=== PATIENT | male | born 1990 | race Caucasian/White ===

== ENCOUNTER 2017-01-01 16:55 | Emergency (ER) | payer SELFPAY ==
[~2017-01-01] VITALS: Ht 180.3 cm; Wt 95.0 kg
[2017-01-01 16:58] VITALS: Ht 180.3 cm; Wt 95.0 kg
[2017-01-01] MEDS ORDERED: CEFTRIAXONE 250 MG INJ IM ONE (18:30)
[2017-01-01] MEDS ORDERED: AZITHROMYCIN 250 MG TAB PO ONE (18:30)
[2017-01-01] MEDS ORDERED: LIDOCAINE 1% (MDV) 20 ML INJ SC ONE (18:30)
--- NOTE | 2017-01-01 19:33 | ERD ---
ER Documentation Chief Complaint Date/Time DATE: 01/01/17 TIME: 19:29 Chief Complaint redness and irritation to tip of penis x 2 weeks HPI Patient is a 26-year-old male who presents with irritation and redness to his penis 2 weeks. Denies dysuria or discharge from his penis. States that he is sexually active with one person for the last 8 months. However he is unsure of his his girlfriend has been with other people. He denies history of STDs in the past. Denies fever or chills, abdominal pain, nausea, vomiting or diarrhea. He states that the lesion on his penis is slightly painful. Denies rashes. ROS All systems reviewed and are negative except as per history of present illness. PMhx/Soc Medical and Surgical Hx: pt denies Medical Hx, pt denies Surgical Hx History of Surgery: No Anesthesia Reaction: No Hx Neurological Disorder: No Hx Respiratory Disorders: No Hx Cardiac Disorders: No Hx Psychiatric Problems: No Hx Miscellaneous Medical Probl: No Hx Alcohol Use: No Hx Substance Use: No Hx Tobacco Use: No Smoking Status: Never smoker Physical Exam Vitals Vital Signs Date Time Temp Pulse Resp B/P Pulse Ox O2 Delivery O2 Flow Rate FiO2 01/01/17 16:58 98.8 94 18 155/95 97 Physical Exam GENERAL: Well-developed, well-nourished male. Appears in no acute distress. HEAD: Normocephalic, atraumatic. EYES: Pupils are equally reactive bilaterally. EOMs grossly intact. No conjunctival erythema. ENT: Moist mucous membranes. No uvula deviation. No kissing tonsils. No exudates. NECK: Supple. No lymphadenopathy or thyromegaly. No meningismus. negative kernig. negative brudinski. LUNG: Clear to auscultation bilaterally. No rhonchi, wheezing, rales or coarse breath sounds. HEART: Regular rate and rhythm. No murmurs, rubs or gallops. : printed circuit board preassembler for examination: Gildardo CABAN, one ulcer on shaft of penis, uncircumsized penis. slight redness. painful ulcer. no discharge from penis. no swollen testicles. Extremities: Equal pulses bilaterally. No peripheral clubbing, cyanosis or edema. No unilateral leg swelling. NEUROLOGIC: Alert and oriented. Moving all four extremities. 5/5 strength in all extremities. Normal speech. Steady gait. SKIN: Normal color. Warm and dry. No rashes or lesions. Capillary refill < 2 seconds Results 24 hrs Current Medications Medications (Trade) Dose Ordered Sig/Mando Route PRN Reason Start Time Stop Time Status Last Admin Dose Admin Azithromycin (Zithromax) 1,000 mg ONCE ONCE PO 01/01/17 18:30 01/01/17 18:31 DC 01/01/17 18:41 Ceftriaxone Sodium (Rocephin) 250 mg ONCE ONCE IM 01/01/17 18:30 01/01/17 18:31 DC 01/01/17 18:41 Lidocaine (Xylocaine 1% (Mdv) 20 ml) 20 ml ONCE ONCE SC 01/01/17 18:30 01/01/17 18:31 DC 01/01/17 18:41 Procedures/MDM ER COURSE: I kept the patient and/or family informed of laboratory and diagnostic imaging results throughout the emergency room course. MEDICAL DECISION MAKING: This is a 26 year old male who presents with lesion on penis x 2 weeks. Vital signs were reviewed. Patient is afebrile. Patient is not hypoxic. And was sent for gonorrhea and chlamydia, syphilis and wound culture was done. Patient was treated here for gonorrhea and chlamydia with azithromycin and Rocephin. Tolerated well with no adverse reaction. This patient for sepsis, syphilis, meningitis, deep space infection. Low suspicion for necrotizing fasciitis, SJS , toxic epidermal necrolysis, Kawasaki, erythema multiforme, gangrene, scarlet fever, meningococcemia, sepsis, anaphylaxis, sepsis, deep space infection, or foreign body. DISCHARGE: At this time, patient is stable for discharge and outpatient management with no new complaints during the ER course. Patient will receive results in 1 week.Patient will be discharged home with instructions to recheck for new or worsening symptoms such as fever, nausea, weakness, LOC and to follow up with primary care in the next 1-2 days. Patient was advised to return to the ER for any new or worsening symptoms. Plan was discussed and patient and/or family understands and agrees. Home instructions were given. Departure Diagnosis: Primary Impression: Male genital ulcer Condition: Stable Patient Instructions: What Are Sexually Transmitted Diseases (STDs)? Referrals: [facility] Usted se moran hecho un examen mdico de control que le indica que no est en mini condicin que requiera tratamiento urgente en el Departamento de Emergencia. Un estudio ms profundo y el tratamiento de ferro condicin pueden esperar sin ningn riesgo hasta que usted sea atendida/o en el consultorio de ferro mdico o mini cl alea. Es responsabilidad suya arreglar mini mary para el seguimiento del steven. MANEJO DE CONDICIONES NO URGENTES EN EL FUTURO 1) Si usted tiene un mdico de atencin primaria: Usted debera llamar a ferro mdico de atencin primaria antes de venir al departamento de emergencia. Despus de las horas de consultorio, ferro doctor o ferro asociado/a est disponible por telfono. El mdico o enfermero de bebe en el servicio telefnico puede asesorarle por opal medio para atender el problema, o steven contrario se puede programar mini mary. 2) Si usted no tiene un mdico de atencin primaria: Llame al mdico o clnica de referencia que aparece abajo pelon las horas de consultorio para hacer mini mary para que le vean. CLINICAS: [facility] [id number] [facility] [phone] [facility] [facility] [phone] [facility]. [place] [id number] [phone] [facility]. [place] [id number] [phone] [facility]. [phone] [address] Additional Instructions: Llame al doctor MAANA y wilda mini MARY PARA DENTRO DE 1-2 BRAR.Dgale a la secretaria que nosotros le instruimos hacer esta mary.Avise o llame si ferro condicin se empeora antes de la mary. Regresa aqui si peor o no mejor. HAILY ERICKSON PA-C Jan 01, 2017 19:33
[2017-01-03 16:19] LABS: RAPID PLASMA REAGIN REACTIVE (NR)
== END 2017-01-01 19:35 | disposition home or self-care (01) ==
LOC: FTE 16:55
DX: N48.5 Ulcer of penis (principal)
CPT/HCPCS: 86592; 87070; 87591; 96372; 99284; J0696